=== PATIENT | male | born 1965 | race Caucasian/White ===

== ENCOUNTER → 2020-02-14 | Emergency (ER) | payer OTHER ==
[~2020-02-14] VITALS: Ht 162.6 cm; Wt 76.2 kg
[~2020-02-14] MED LIST: AMOX1TAB5; TYLENOL EXTRA500 MG
== END | disposition left against medical advice (07) ==
LOC: ER 19:03
DX: Z53.20 Procedure and treatment not carried out because of patient's decision for unspecified reasons (principal)